=== PATIENT | male | born 1990 | race Caucasian/White ===

== ENCOUNTER 2021-07-10 11:59 | Emergency (ER) | payer BC, SELFPAY ==
--- NOTE | 2021-07-10 12:56 | EDPHYS ---
Physician Documentation [facility] Name: Rosas Clarke Age: 30 yrs Sex: Male : 1990 Arrival Date: 07/10/2021 Time: 12:04 Bed Treatment Private MD: Cliff Estevez HPI: 07/10 12:45 This 30 yrs old Male presents to ER via Ambulatory with complaints of Groin Rash. cp 12:45 The patient presents with rash to right groin. Onset: The symptoms/episode cp began/occurred 2 day(s) ago. Associated signs and symptoms: Pertinent negatives: fever, testicular pain and/or swelling. Severity of symptoms: in the emergency department the symptoms are unchanged, despite home interventions. Historical: - Allergies: 12:14 Abilify; ww - Home Meds: 12:14 None [Active]; ww - PMHx: 12:14 Bipolar disorder; ADD/ADHD; ww - PSHx: 12:14 None; ww - Immunization history:: Flu vaccine is not up to date. - Social history:: Smoking status: Reported history of juuling and/or vaping. ROS: 12:48 Constitutional: Negative for fever. cp 12:48 : Negative for penile discharge, penile pain, testicular pain 12:48 Skin: Positive for rash, of the right groin. 12:48 All other systems are negative. Exam: 12:51 Head/Face: Normocephalic, atraumatic. cp 12:51 Constitutional: The patient appears in no acute distress, alert, awake, non-toxic, well developed, well nourished. 12:51 Skin: small area of erythema with ruptured bullae, no drainage expressed and no cp induration noted to right groin. Vital Signs: 12:12 BP 118 / 76; Pulse 71; Resp 18; Temp 98.4; Pulse Ox 99% on R/A; Weight 81.65 kg; Height ww 6 ft. 0 in. (182.88 cm); Pain 3/10; 12:12 Body Mass Index 24.41 (81.65 kg, 182.88 cm) ww MDM: 12:30 Patient medically screened. cp 12:55 Differential diagnosis: cellulitis, abscess, herpetic lesion. cp 12:55 Data reviewed: vital signs, nurses notes, and as a result, I will discharge patient. cp Counseling: I had a detailed discussion with the patient and/or guardian regarding: the historical points, exam findings, and any diagnostic results supporting the discharge/admit diagnosis, to return to the emergency department if symptoms worsen or persist or if there are any questions or concerns that arise at home. Administered Medications: No medications were administered Disposition: 01:00 Chart complete. cp Disposition Summary: 07/10/21 12:55 Discharge Ordered Location: Home cp Problem: new cp Symptoms: are unchanged cp Condition: Stable cp Diagnosis - Local infection of the skin and subcutaneous tissue, unspecified cp Followup: cp - With: Private Physician - When: 2 - 3 days - Reason: Worsening of condition Discharge Instructions: - Discharge Summary Sheet cp - Cellulitis, Adult cp Forms: - Medication Reconciliation Form cp - Thank You Letter cp - Antibiotic Education cp - Prescription Opioid Use cp Prescriptions: - mupirocin 2 % Topical ointment - apply 1 application by TOPICAL route 3 times per day for 8-10 days; 15 gram; cp Refills: 0, Product Selection Permitted - Doxycycline Hyclate 100 mg Oral Tablet - take 1 tablet by ORAL route every 12 hours; 20 tablet; Refills: 0, Product cp Selection Permitted Addendum: 07/11/2021 18:46 Co-signature as Attending Physician, Cliff Antony MD I agree with the assessment and c tinsley plan of care. Signatures: Cliff Antony MD MD cha Page, Corey, PA PA cp Wood, Whitney, RN RN ww
--- NOTE | 2021-07-10 12:56 | ER ---
Nurse's Notes [facility] Name: Rosas Clarke Age: 30 yrs Sex: Male : 1990 Arrival Date: 07/10/2021 Time: 12:04 Bed Treatment Private MD: Diagnosis: Local infection of the skin and subcutaneous tissue, unspecified Presentation: 07/10 12:12 Chief complaint: Patient states: Right lump in the inguinal region that started 2 days ww and is painful. Coronavirus screen: Vaccine status: Patient reports being unvaccinated. Client denies travel out of the [place] in the last 14 days. Ebola Screen: Patient negative for fever greater than or equal to 101.5 degrees Fahrenheit, and additional compatible Ebola Virus Disease symptoms Patient denies exposure to infectious person. Patient denies travel to an Ebola-affected area in the 21 days before illness onset. Initial Sepsis Screen: Does the patient meet any 2 criteria? No. Patient's initial sepsis screen is negative. Does the patient have a suspected source of infection? No. Patient's initial sepsis screen is negative. Risk Assessment: Do you want to hurt yourself or someone else? Patient reports no desire to harm self or others. Onset of symptoms was July 08, 2021. 12:12 Method Of Arrival: Ambulatory ww 12:12 Acuity: GINGER 4 ww Triage Assessment: 12:14 General: Appears in no apparent distress. well developed, well nourished, Behavior is ww calm, cooperative, appropriate for age. Pain: Complains of pain in right femoral area and right inguinal area. EENT: No deficits noted. No signs and/or symptoms were reported regarding the EENT system. Neuro: No deficits noted. Level of Consciousness is awake, alert, obeys commands, Oriented to person, place, time, situation, Appropriate for age Gait is steady, Speech is normal. Cardiovascular: Capillary refill < 3 seconds. Respiratory: Airway is patent Respiratory effort is even, unlabored, Respiratory pattern is regular, symmetrical. GI: No deficits noted. No signs and/or symptoms were reported involving the gastrointestinal system. Reports normal bowel habits. : No deficits noted. No signs and/or symptoms were reported regarding the genitourinary system. : No deficits noted. Derm: No deficits noted. No signs and/or symptoms reported regarding the dermatologic system. Skin is intact, Skin is pink, warm \T\ dry. Musculoskeletal: No deficits noted. No signs and/or symptoms reported regarding the musculoskeletal system. Historical: - Allergies: 12:14 Abilify; ww - Home Meds: 12:14 None [Active]; ww - PMHx: 12:14 Bipolar disorder; ADD/ADHD; ww - PSHx: 12:14 None; ww - Immunization history:: Flu vaccine is not up to date. - Social history:: Smoking status: Reported history of juuling and/or vaping. Screenin:31 Abuse screen: Denies threats or abuse. Nutritional screening: No deficits noted. ap3 Tuberculosis screening: No symptoms or risk factors identified. Fall Risk None identified. Assessment: 12:30 General: Appears in no apparent distress. comfortable, Behavior is calm, cooperative, ap3 appropriate for age. Pain: Complains of pain in right inguinal area. Neuro: Level of Consciousness is awake, alert, obeys commands, Oriented to person, place, time, situation, Appropriate for age Speech is normal. Respiratory: Airway is patent Respiratory effort is even, unlabored. Derm: Reports swelling present in the lower right inguinal area. Vital Signs: 12:12 BP 118 / 76; Pulse 71; Resp 18; Temp 98.4; Pulse Ox 99% on R/A; Weight 81.65 kg; Height ww 6 ft. 0 in. (182.88 cm); Pain 3/10; 12:12 Body Mass Index 24.41 (81.65 kg, 182.88 cm) ED Course: 12:04 Patient arrived in ED. am2 12:14 Triage completed. ww 12:14 Arm band placed on right wrist. ww 12:24 Rhianna Calvo, EMMANUEL is Primary Nurse. ap3 12:29 Cliff Boswell PA is PHCP. cp 12:29 Cliff Antony MD is Attending Physician. cp 12:31 Patient has correct armband on for positive identification. Placed in gown. Bed in low ap3 position. Call light in reach. Side rails up X 1. Pulse ox on. NIBP on. Door closed. Noise minimized. 13:02 No provider procedures requiring assistance completed. Patient did not have IV access ap3 during this emergency room visit. Administered Medications: No medications were administered Outcome: 12:55 Discharge ordered by . cp 13:02 Discharged to home ambulatory. ap3 13:02 Condition: good 13:02 Discharge instructions given to patient, Instructed on discharge instructions, follow up and referral plans. medication usage, wound care, Demonstrated understanding of instructions, follow-up care, medications, Prescriptions given X 2. 13:03 Patient left the ED. ap3 Signatures: Cliff Boswell PA PA cp Rhianna Leary am2 Rhianna Calvo RN RN ap3 Verenice Spivey RN RN ww
[2021-07-10 13:12] VITALS: BP 118/76; TEMP 98.4; O2SAT 99
== END 2021-07-10 13:03 | disposition home or self-care (01) ==
LOC: ER 11:59
DX: L08.9 Local infection of the skin and subcutaneous tissue, unspecified (principal); Z88.8 Allergy status to other drugs, medicaments and biological substances
CPT/HCPCS: 99283

== ENCOUNTER 2022-01-09 12:40 | Emergency (ER) | payer SELFPAY ==
[2022-01-09] MEDS ORDERED: MORPHINE 4 MG/ML SYR ONE (13:27)
[2022-01-09] MEDS ORDERED: FAMOTIDINE 20 MG/2 ML VIAL IV ONE (13:27)
[2022-01-09] MEDS ORDERED: ONDANSETRON 4 MG/2 ML VIAL ONE (13:27)
[2022-01-09] MEDS ORDERED: NA CHLORIDE 0.9% 1,000 ML ONE (13:27)
[2022-01-09 13:35] LABS: Urine Blood Negative (Negative); Urine Glucose Negative (Negative); Urine Protein Negative (Negative); Urine Specific Gravity >=1.030 (1.005-1.030); Urine pH 5.5 (5.0-7.0)
[2022-01-09 13:39] LABS: Absolute Lymphocytes (CBC) 1.3 K/uL (0.7-4.9); Hematocrit 46.6 % (39.6-49.0); Lymphocytes % 23.7 % (15.3-44.8); MPV 8.6 fL (7.6-11.3); RBC Red Blood Cell Count 4.97 M/uL (4.33-5.43)
[2022-01-09 13:47] LABS: Urine Bacteria NONE SEEN /HPF (NONE SEEN); Urine RBC NONE SEEN /HPF (NONE SEEN)
[2022-01-09 13:48] LABS: Urine Mucus SLIGHT /HPF (NONE SEEN)
[2022-01-09 13:56] LABS: Bilirubin Total 1.3 mg/dL (0.2-1.0); Potassium 3.6 mmol/L (3.5-5.1); Protein, Total 7.5 g/dL (6.4-8.2)
--- NOTE | 2022-01-09 14:32 | RAD REPORT ---
EXAM DESCRIPTION: CTAbdomen Pelvis W Contrast - 01/09/2022 2:14 pm CLINICAL HISTORY: Epigatric pain COMPARISON: No comparisons TECHNIQUE: CT of the abdomen and pelvis was performed. All CT scans are performed using dose optimization technique as appropriate and may include automated exposure control or mA/KV adjustment according to patient size. FINDINGS: Lower chest: Mild circumferential thickening of the distal esophagus which may reflect mil d esophagitis. Liver: No acute abnormality or suspicious lesions. Biliary: No biliary ductal dilatation. Stomach: No significant focal abnormality. Duodenum: No significant focal abnormality. Pancreas: No significant abnormality. Spleen: No significant abnormality. Adrenal: No suspicious lesions. Kidney/ureter: No hydronephrosis. No renal calculi. Retroperitoneum: No retroperitoneal adenopathy. Vascular: No aneurysm. Bowel: No significant focal abnormality. Normal appendix. Peritoneum: No ascites or free air. Bladder: Grossly unremarkable. Reproductive: No adnexal masses. Bones: No acute fracture. Schmorl's node in the superior endplate of L5. Other: n/a IMPRESSION: No acute intra-abdominal or pelvic finding. Circumferentially thickened distal esophagus which may reflect esophagitis. Normal appendix
--- NOTE | 2022-01-09 15:06 | ER ---
Nurse's Notes [facility] Name: Rosas Clarke Age: 31 yrs Sex: Male : 1990 Arrival Date: 01/09/2022 Time: 12:41 Bed 26 Private MD: Diagnosis: Esophagitis, unspecified Presentation: 01/09 12:52 Chief complaint: Patient states: NV since last night, stated Epigastric pain. 1 Coronavirus screen: Vaccine status: Patient reports being unvaccinated. Client denies travel out of the [place] in the last 14 days. Ebola Screen: Patient denies exposure to infectious person. Patient denies travel to an Ebola-affected area in the 21 days before illness onset. Initial Sepsis Screen: Does the patient meet any 2 criteria? No. Patient's initial sepsis screen is negative. Does the patient have a suspected source of infection? No. Patient's initial sepsis screen is negative. Risk Assessment: Do you want to hurt yourself or someone else? Patient reports no desire to harm self or others. Onset of symptoms was January 08, 2022. 12:52 Method Of Arrival: Ambulatory [facility] 12:52 Acuity: GINGER 3 1 Triage Assessment: 12:53 General: Appears comfortable, Behavior is calm, cooperative. Pain: Complains of pain in 1 epigastric area Pain currently is 3 out of 10 on a pain scale. GI: Reports nausea, vomiting. Historical: - Allergies: 12:53 Abilify; vg1 - Home Meds: 12:53 None [Active]; vg1 - PMHx: 12:53 ADD/ADHD; Bipolar disorder; vg1 - PSHx: 12:53 None; vg1 - Immunization history:: Client reports having NOT received the Covid vaccine. - Social history:: Smoking status: Reported history of juuling and/or vaping. Screenin:13 Abuse screen: Denies threats or abuse. Nutritional screening: No deficits noted. [facility] Tuberculosis screening: No symptoms or risk factors identified. Fall Risk None identified. Assessment: 13:13 Reassessment: Patient appears in no apparent distress at this time. No changes from [facility] previously documented assessment. General: Appears in no apparent distress. Behavior is calm, cooperative, appropriate for age. Cardiovascular: No deficits noted. Respiratory: No deficits noted. GI: Abdomen is flat, non-distended. Vital Signs: 12:52 BP 122 / 75; Pulse 77; Resp 16; Temp 98.7(TE); Pulse Ox 100% ; Weight 90.72 kg; Height [facility] 6 ft. 0 in. (182.88 cm); Pain 3/10; 13:38 BP 117 / 70; Pulse 65; Resp 18; Pulse Ox 98% on R/A; bh1 14:06 BP 115 / 69; Pulse 88; Resp 20; Pulse Ox 98% on R/A; bh1 14:30 BP 117 / 75; Pulse 54; Resp 20; Temp 98.3(O); Pulse Ox 98% on R/A; bh1 15:12 BP 124 / 59; Pulse 60; Resp 20; Pulse Ox 100% on R/A; bh1 15:12 BP 186 / 80; Pulse 65; Resp 20; Pulse Ox 99% on R/A; bh1 15:33 BP 122 / 76; Pulse 56; Resp 20; Temp 98.3(O); Pulse Ox 99% on R/A; bh1 12:52 Body Mass Index 27.12 (90.72 kg, 182.88 cm) [facility] ED Course: 12:41 Patient arrived in ED. rg4 12:53 Triage completed. 1 12:53 Arm band placed on. 1 12:55 Kriss[facility] Giron [facility] jh7 12:55 Cliff Antony MD is Attending Physician. [facility] 12:57 Shira Back, EMMANUEL is Primary Nurse. [facility] 13:13 No apparent distress. 1 13:13 Patient has correct armband on for positive identification. Bed in low position. Call [facility] light in reach. Pulse ox on. NIBP on. 13:13 No provider procedures requiring assistance completed. 1 13:35 CBC with Diff Sent. 1 13:35 CMP Sent. 1 13:35 Lipase Sent. 1 13:35 Urine Microscopic Only Sent. 1 13:37 Inserted saline lock: 20 gauge in right antecubital area, using aseptic technique. [facility] Blood collected. 13:38 No apparent distress. Awaiting lab results, Awaiting CT Scan. 1 14:[address] [facility] 14:15 CT Abd/Pelvis - IV Contrast Only In Process Unspecified. EDOH 14:31 Awaiting lab results, Awaiting radiology results. [facility] 15:11 No apparent distress. Awaiting: iv fluids. 1 15:12 No apparent distress. Awaiting: iv fluids. [facility] 15:32 IV discontinued, intact, bleeding controlled. [facility] Administered Medications: 13:25 Drug: NS 0.9% 1000 ml Route: IV; Rate: 1 bolus; Site: right antecubital; [facility] 15:33 Follow up: IV Status: Completed infusion; IV Intake: 1000ml [facility] 13:25 Drug: Pepcid (famotidine) 20 mg Route: IVP; Site: right antecubital; [facility] 13:36 Follow up: Response: No adverse reaction [facility] 13:25 Drug: Zofran (Ondansetron) 4 mg Route: IVP; Site: right antecubital; [facility] 13:36 Follow up: Response: No adverse reaction [facility] 13:25 Drug: morphine 4 mg Route: IVP; Infused Over: 4 mins; Site: right antecubital; [facility] 13:36 Follow up: Response: No adverse reaction [facility] 15:11 Drug: GI Cocktail without - (Maalox Suspension 30 ml, Lidocaine Liquid 2 % 15 bh1 ml) Route: PO; 15:11 Follow up: Response: No adverse reaction [facility] Medication: 13:13 VIS not applicable for this client. [facility] Intake: 15:33 IV: 1000ml; Total: 1000ml. [facility] Outcome: 15:05 Discharge ordered by MD. blevins 15:32 Discharged to home ambulatory. [facility] 15:32 Condition: good 15:32 Discharge instructions given to patient, family, Instructed on discharge instructions, follow up and referral plans. medication usage, Demonstrated understanding of instructions, follow-up care, medications, Prescriptions given X 2. 15:33 Patient left the ED. [facility] Signatures: Dispatcher [employer] EDMirta Gooden Victoria, RN RN 1 Krissy Giron, ADVERTISING ASSISTANT MANAGER ADVERTISING ASSISTANT MANAGER Shira Mccarty RN RN [facility]
--- NOTE | 2022-01-09 15:06 | EDPHYS ---
Physician Documentation [facility] Name: Rosas Clarke Age: 31 yrs Sex: Male : 1990 Arrival Date: 01/09/2022 Time: 12:41 Bed 26 Private MD: ED Physician Cliff Antony HPI: 01/09 12:55 This 31 yrs old Male presents to ER via Ambulatory with complaints of Vomiting. jh7 12:55 The patient presents to the emergency department with nausea, vomiting, abdominal pain, jh7 of the epigastric area. Onset: The symptoms/episode began/occurred last night. Patient presents for nausea and vomiting and epigastric pain since last night. States he is vomited at least 4 times. Denies fever, cough, and diarrhea. States that his last bowel movement was last night.. Historical: - Allergies: 12:53 Abilify; vg1 - Home Meds: 12:53 None [Active]; vg1 - PMHx: 12:53 ADD/ADHD; Bipolar disorder; vg1 - PSHx: 12:53 None; vg1 - Immunization history:: Client reports having NOT received the Covid vaccine. - Social history:: Smoking status: Reported history of juuling and/or vaping. ROS: 12:55 Constitutional: Negative for fever, chills, and weight loss. jh7 12:55 ENT: Negative for injury, pain, and discharge, Neck: Negative for injury, pain, and swelling, Cardiovascular: Negative for chest pain, palpitations, and edema, Respiratory: Negative for shortness of breath, cough, wheezing, and pleuritic chest pain, Back: Negative for injury and pain, Skin: Negative for injury, rash, and discoloration, Neuro: Negative for headache, weakness, numbness, tingling, and seizure. 12:55 Abdomen/GI: Positive for abdominal pain, nausea and vomiting, Negative for diarrhea, constipation, black/tarry stool. 12:55 All other systems are negative. Exam: 12:55 Constitutional: This is a well developed, well nourished patient who is awake, alert, jh7 and in no acute distress. ENT: Nares patent. No nasal discharge, no septal abnormalities noted. Tympanic membranes are normal and external auditory canals are clear. Oropharynx with no redness, swelling, or masses, exudates, or evidence of obstruction, uvula midline. Mucous membranes moist. Neck: Trachea midline, no thyromegaly or masses palpated, and no cervical lymphadenopathy. Supple, full range of motion without nuchal rigidity, or vertebral point tenderness. No Meningismus. Cardiovascular: Regular rate and rhythm with a normal S1 and S2. No gallops, murmurs, or rubs. Normal PMI, no JVD. No pulse deficits. Respiratory: Lungs have equal breath sounds bilaterally, clear to auscultation and percussion. No rales, rhonchi or wheezes noted. No increased work of breathing, no retractions or nasal flaring. Back: No spinal tenderness. No costovertebral tenderness. Full range of motion. Skin: Warm, dry with normal turgor. Normal color with no rashes, no lesions, and no evidence of cellulitis. MS/ Extremity: Pulses equal, no cyanosis. Neurovascular intact. Full, normal range of motion. Neuro: Awake and alert, GCS 15, oriented to person, place, time, and situation. Motor strength 5/5 in all extremities. Sensory grossly intact. Normal gait. 12:55 Abdomen/GI: Inspection: abdomen appears normal, Bowel sounds: normal, Palpation: moderate abdominal tenderness, in the epigastric area. Vital Signs: 12:52 BP 122 / 75; Pulse 77; Resp 16; Temp 98.7(TE); Pulse Ox 100% ; Weight 90.72 kg; Height vg1 6 ft. 0 in. (182.88 cm); Pain 3/10; 13:38 BP 117 / 70; Pulse 65; Resp 18; Pulse Ox 98% on R/A; bh1 14:06 BP 115 / 69; Pulse 88; Resp 20; Pulse Ox 98% on R/A; bh1 14:30 BP 117 / 75; Pulse 54; Resp 20; Temp 98.3(O); Pulse Ox 98% on R/A; bh1 15:12 BP 124 / 59; Pulse 60; Resp 20; Pulse Ox 100% on R/A; bh1 15:12 BP 186 / 80; Pulse 65; Resp 20; Pulse Ox 99% on R/A; bh1 15:33 BP 122 / 76; Pulse 56; Resp 20; Temp 98.3(O); Pulse Ox 99% on R/A; bh1 12:52 Body Mass Index 27.12 (90.72 kg, 182.88 cm) vg1 MDM: 12:56 Patient medically screened. [facility] 14:45 Differential diagnosis: gastritis, cholecystitis, pancreatitis, viral gastroenteritis. [facility] Data reviewed: vital signs, nurses notes, lab test result(s), radiologic studies, CT scan. Data interpreted: Pulse oximetry: is 98 %. Interpretation: normal. Counseling: I had a detailed discussion with the patient and/or guardian regarding: the historical points, exam findings, and any diagnostic results supporting the discharge/admit diagnosis, lab results, radiology results, to return to the emergency department if symptoms worsen or persist or if there are any questions or concerns that arise at home. 14:45 Response to treatment: the patient's symptoms have mildly improved after treatment. ED 7 course: The patient remained stable throughout his ER visit. His lab and CT scan results were discussed. Informed him that he had esophagitis which likely occurred from vomiting. Informed him that he would be prescribed medication for nausea and an acids. If his symptoms persist, or worsen, he should return to the ER for further eval. The patient understood the plan of care.. 01/09 13:00 Order name: CBC with Diff; Complete Time: 14:00 [facility] 01/09 13:00 Order name: CMP; Complete Time: 14:00 [facility] 01/09 13:00 Order name: Lipase; Complete Time: 14:00 [facility] 01/09 13:00 Order name: Urine Microscopic Only; Complete Time: 14:00 [facility] 01/09 13:00 Order name: CT Abd/Pelvis - IV Contrast Only; Complete Time: 14:41 [facility] 01/09 13:35 Order name: Urine Dipstick-Ancillary; Complete Time: 14:00 [facility] 01/09 13:00 Order name: IV Saline Lock; Complete Time: 13:35 [facility] 01/09 13:00 Order name: Labs collected and sent; Complete Time: 13:35 [facility] 01/09 13:00 Order name: Urine Dipstick-Ancillary (obtain specimen); Complete Time: 13:35 [facility] Administered Medications: 13:25 Drug: NS 0.9% 1000 ml Route: IV; Rate: 1 bolus; Site: right antecubital; [facility] 15:33 Follow up: IV Status: Completed infusion; IV Intake: 1000ml [facility] 13:25 Drug: Pepcid (famotidine) 20 mg Route: IVP; Site: right antecubital; 1 13:36 Follow up: Response: No adverse reaction [facility] 13:25 Drug: Zofran (Ondansetron) 4 mg Route: IVP; Site: right antecubital; 1 13:36 Follow up: Response: No adverse reaction [facility] 13:25 Drug: morphine 4 mg Route: IVP; Infused Over: 4 mins; Site: right antecubital; [facility] 13:36 Follow up: Response: No adverse reaction [facility] 15:11 Drug: GI Cocktail without - (Maalox Suspension 30 ml, Lidocaine Liquid 2 % 15 bh1 ml) Route: PO; 15:11 Follow up: Response: No adverse reaction [facility] Disposition Summary: 01/09/22 15:05 Discharge Ordered Location: Home [facility] Problem: new [facility] Symptoms: have improved [facility] Condition: Stable [facility] Diagnosis - Esophagitis, unspecified [facility] Followup: [facility] - With: Private Physician - When: 2 - 3 days - Reason: Recheck today's complaints Discharge Instructions: - Discharge Summary Sheet [facility] - Esophagitis [facility] Forms: - Medication Reconciliation Form [facility] - Thank You Letter [facility] - Work release form [facility] Prescriptions: - Pepcid 20 mg Oral Tablet - take 1 tablet by ORAL route every 12 hours for 10 days; 20 tablet; Refills: 0, [facility] Product Selection Permitted - Zofran 4 mg Oral Tablet - take 1 tablet by ORAL route every 12 hours As needed; 20 tablet; Refills: 0, [facility] Product Selection Permitted Signatures: Dispatcher [employer] Gabriela Dudley, RN RN 1 Krissy Giron, WAREHOUSE SHIFT SUPERVISOR WAREHOUSE SHIFT SUPERVISOR [facility] Shira Back, RN RN bh1
[2022-01-09] MEDS ORDERED: MAGNES/ALUMIN/SIMET 30ML UCUP ONE (15:15)
[2022-01-09] MEDS ORDERED: LIDOCAINE VISCOUS 2% SOLN 15 ML UDC ONE (15:15)
[2022-01-09 16:24] VITALS: TEMP 98.3
[2022-01-09 16:26] VITALS: O2SAT 99
[2022-01-09 16:27] VITALS: BP 122/76
== END 2022-01-09 15:33 | disposition home or self-care (01) ==
LOC: ER 12:40
DX: K20.90 Esophagitis, unspecified without bleeding (principal); Z88.8 Allergy status to other drugs, medicaments and biological substances
CPT/HCPCS: 36415; 74177; 80053; 81003; 81015; 83690; 85025; J2405; J3490; J7030; Q9967

== ENCOUNTER 2022-08-11 14:00 | Emergency (ER) | payer SELFPAY ==
[2022-08-11 15:13] LABS: Absolute Lymphocytes (CBC) 0.5 K/uL (0.7-4.9); Hematocrit 51.2 % (39.6-49.0); Lymphocytes % 4.9 % (15.3-44.8); MCV 91.4 fL (80-100)
[2022-08-11 15:30] LABS: Albumin 4.7 g/dL (3.4-5.0); Bilirubin Total 2.8 mg/dL (0.2-1.0); Protein, Total 8.3 g/dL (6.4-8.2)
--- NOTE | 2022-08-11 16:21 | RAD REPORT ---
EXAM DESCRIPTION: US - Abdomen Exam Limited - 08/11/2022 3:54 pm CLINICAL HISTORY: ABD PAIN COMPARISON: Abdomen Pelvis W Contrast dated 01/09/2022 FINDINGS: The gallbladder demonstrates no gallstones. No pericholecystic fluid or gallbladder wall t hickening. The common bile duct is normal measuring 3 mm. The liver demonstrates no findings of intrahepatic biliary dilatation. IMPRESSION: Unremarkable examination. Negative for cholelithiasis or acute cholecystitis.
--- NOTE | 2022-08-11 16:21 | RAD REPORT ---
EXAM DESCRIPTION: CTAbdomen Pelvis W Contrast - 08/11/2022 3:56 pm CLINICAL HISTORY: vomiting, diarrhea, abdominal pain COMPARISON: Abdomen Pelvis W Contrast dated 01/09/2022bdomen Pelvis W Contrast dated 01/09/2022; Ab domen Exam Limited dated 08/11/2022 TECHNIQUE: CT of the abdomen and pelvis was performed with IV contrast. All CT scans are performed using dose optimization technique as appropriate and may include automated exposure control or mA/KV adjustment according to patient size. FINDINGS: Lower chest: No acute abnormality. Liver: No acute abnormality or suspicious lesions. Biliary: No biliary ductal dilatation. Stomach: No significant focal abnormality. Duodenum: No significant focal abnormality. Pancreas: No significant abnormality. Spleen: No significant abnormality. Adrenal: No suspicious lesions. Kidney/ureter: No hydronephrosis. No renal calculi. Retroperitoneum: No retroperitoneal adenopathy. Vascular: No aneurysm. Bowel: No significant focal abnormality. Normal appendix. Peritoneum: No ascites or free air. Bladder: Grossly unremarkable. Reproductive: No adnexal masses. Bones: No acute fracture. Schmorl's node at the superior endplate of L5 . Other: n/a IMPRESSION: No acute intra-abdominal or pelvic finding. Normal appendix.
[2022-08-11] MEDS ORDERED: ONDANSETRON 4 MG/2 ML VIAL ONE (17:01)
[2022-08-11] MEDS ORDERED: NA CHLORIDE 0.9% 1,000 ML ONE (17:01)
--- NOTE | 2022-08-11 18:23 | EDPHYS ---
Physician Documentation [facility] Name: Rosas Clarke Age: 31 yrs Sex: Male : 1990 Arrival Date: 08/11/2022 Time: 14:01 Bed 10 Private MD: ED Physician Alen Louis HPI: 08/11 18:20 This 31 yrs old Male presents to ER via Ambulatory with complaints of Abdominal Pain, jmm Vomiting/Diarrhea. 18:20 The patient presents with abdominal pain. Onset: The symptoms/episode began/occurred jmm gradually, this morning. Is a 31-year-old male with history of bipolar, ADHD that presents emerged department with complaints of abdominal pain vomiting and diarrhea beginning acutely this morning. Denies any infectious exposure. Denies recent antibiotic use.. Historical: - Allergies: 15:01 Abilify; vg1 - Home Meds: 15:01 None [Active]; vg1 - PMHx: 15:01 Bipolar disorder; ADD/ADHD; vg1 - PSHx: 15:01 None; vg1 - Immunization history:: Client reports having NOT received the Covid vaccine. - Social history:: Smoking status: Reported history of juuling and/or vaping. ROS: 18:20 Constitutional: Positive for body aches. jmm 18:20 Abdomen/GI: Positive for abdominal pain, nausea and vomiting, diarrhea. 18:20 All other systems are negative. Exam: 18:20 Constitutional: This is a well developed, well nourished patient who is awake, alert, jmm and in no acute distress. Head/Face: atraumatic. Eyes: EOMI, no conjunctival erythema appreciated ENT: Moist Mucus Membranes Neck: Trachea midline, Supple Chest/axilla: Normal chest wall appearance and motion. Cardiovascular: Regular rate and rhythm. No edema appreciated Respiratory: Normal respirations, no respiratory distress appreciated 18:20 Back: Normal ROM Skin: General appearance color normal MS/ Extremity: Moves all extremities, no obvious deformities appreciated, no edema noted to the lower extremities Neuro: Awake and alert Psych: Behavior is normal, Mood is normal, Patient is cooperative and pleasant 18:20 Abdomen/GI: Inspection: abdomen appears normal, Bowel sounds: normal, Palpation: soft, mild abdominal tenderness, in all quadrants. Vital Signs: 14:58 BP 113 / 80; Pulse 75; Resp 18; Temp 97.9(TE); Pulse Ox 97% on R/A; Weight 81.65 kg; vg1 Height 6 ft. 0 in. (182.88 cm); Pain 8/10; 14:58 Body Mass Index 24.41 (81.65 kg, 182.88 cm) vg1 MDM: 14:43 Patient medically screened. [facility] 18:21 Data reviewed: vital signs, nurses notes. I considered the following discharge [facility] prescriptions or medication management in the emergency department Medications were administered in the Emergency Department. See MAR. Counseling: I had a detailed discussion with the patient and/or guardian regarding: the historical points, exam findings, and any diagnostic results supporting the discharge/admit diagnosis, lab results, radiology results, the need for outpatient follow up, to return to the emergency department if symptoms worsen or persist or if there are any questions or concerns that arise at home. Response to treatment: the patient's symptoms have markedly improved after treatment, and as a result, I will discharge patient. 08/11 14:43 Order name: CBC with Diff; Complete Time: 15:20 [facility] 08/11 14:43 Order name: CMP; Complete Time: 15:35 [facility] 08/11 14:43 Order name: Lipase; Complete Time: 15:35 [facility] 08/11 14:43 Order name: CT Abd/Pelvis - IV Contrast Only; Complete Time: 16:23 [facility] 08/11 15:35 Order name: US Abdomen Limited; Complete Time: 16:23 [facility] 08/11 14:43 Order name: IV Saline Lock; Complete Time: 15:04 [facility] 08/11 14:43 Order name: Labs collected and sent; Complete Time: 15:04 [facility] Administered Medications: 17:07 Drug: NS 0.9% 1000 ml Route: IV; Rate: 1 bolus; Site: right antecubital; aa5 18:10 Follow up: IV Status: Completed infusion; IV Intake: 1000ml aa5 17:07 Drug: Zofran (Ondansetron) 4 mg Route: IVP; Site: right antecubital; aa5 17:15 Follow up: Response: No adverse reaction aa5 Disposition: 08/12 13:32 Co-signature as Attending Physician, Aeln Louis MD. rn Disposition Summary: 08/11/22 18:22 Discharge Ordered Location: Home jmm Condition: Stable jmm Diagnosis - Vomiting jmm - Diarrhea, unspecified jmm Followup: jmm - With: Private Physician - When: 2 - 3 days - Reason: Recheck today's complaints, Continuance of care, Re-evaluation by your physician Discharge Instructions: - Discharge Summary Sheet jmm - Diarrhea, Adult jmm - Vomiting, Adult jmm Forms: - Medication Reconciliation Form [facility] - Thank You Letter [facility] - Antibiotic Education [facility] - Prescription Opioid Use [facility] - Work release form aa5 Prescriptions: - dicyclomine 20 mg Oral Tablet - take 1 tablet by ORAL route 3 times per day As needed; 20 tablet; Refills: 0, [facility] Product Selection Permitted - ondansetron 4 mg Oral tablet,disintegrating - take 1 tablet by ORAL route every 4 hours As needed; 20 tablet; Refills: 0, [facility] Product Selection Permitted Signatures: Dispatcher [employer] Adelso Fuentes PA PA jmm Nieto, Roman, MD MD rn Calderon, Audri, RN RN aa5 Gabriela Mercado RN RN vg1
--- NOTE | 2022-08-11 18:23 | ER ---
Nurse's Notes [facility] Name: Rosas Clarke Age: 31 yrs Sex: Male : 1990 Arrival Date: 08/11/2022 Time: 14:01 Bed 10 Private MD: Diagnosis: Vomiting;Diarrhea, unspecified Presentation: 08/11 14:58 Chief complaint: Patient states: NVD that began this morning with ABD pain; also stated vg1 intolerance to fluids. Coronavirus screen: Vaccine status: Patient reports being unvaccinated. Client denies travel out of the [place] in the last 14 days. Ebola Screen: Patient negative for fever greater than or equal to 101.5 degrees Fahrenheit, and additional compatible Ebola Virus Disease symptoms Patient denies exposure to infectious person. Initial Sepsis Screen: Does the patient meet any 2 criteria? No. Patient's initial sepsis screen is negative. Does the patient have a suspected source of infection? No. Patient's initial sepsis screen is negative. Risk Assessment: Do you want to hurt yourself or someone else? Patient reports no desire to harm self or others. Onset of symptoms was August 11, 2022. 14:58 Method Of Arrival: Ambulatory vg1 14:58 Acuity: GINGER 3 vg1 Triage Assessment: 15:01 General: Appears uncomfortable, Behavior is calm, cooperative. Pain: Complains of pain vg1 in umbilical area Pain currently is 8 out of 10 on a pain scale. Pain began this morning. Neuro: Level of Consciousness is awake, alert, obeys commands, Oriented to person, place, time, situation. Respiratory: Airway is patent. GI: Abdomen is flat, Reports diarrhea, nausea, vomiting. Derm: Skin is pink, warm \T\ dry. Historical: - Allergies: 15:01 Abilify; vg1 - Home Meds: 15:01 None [Active]; vg1 - PMHx: 15:01 Bipolar disorder; ADD/ADHD; vg1 - PSHx: 15:01 None; vg1 - Immunization history:: Client reports having NOT received the Covid vaccine. - Social history:: Smoking status: Reported history of juuling and/or vaping. Screenin:03 [facility] ED Fall Risk Assessment (Adult) History of falling in the last 3 months, vg1 including since admission No falls in past 3 months (0 pts) Confusion or Disorientation No (0 pts) Intoxicated or Sedated No (0 pts) Impaired Gait No (0 pts) Mobility Assist Device Used No (0 pt) Altered Elimination No (0 pt) Score/Fall Risk Level 0 - 2 = Low Risk Oriented to surroundings, Maintained a safe environment, Educated pt \T\ family on fall prevention, incl call for assistance when getting out of bed, Assessed \T\ reinforced patient's understanding of fall precautions. Abuse screen: Denies threats or abuse. Nutritional screening: No deficits noted. Tuberculosis screening: No symptoms or risk factors identified. Assessment: 17:05 Reassessment: Patient is alert, oriented x 3, equal unlabored respirations, skin aa5 warm/dry/pink. 18:10 Reassessment: Patient is alert, oriented x 3, equal unlabored respirations, skin aa5 warm/dry/pink. 18:30 Reassessment: Patient is alert, oriented x 3, equal unlabored respirations, skin aa5 warm/dry/pink. Vital Signs: 14:58 BP 113 / 80; Pulse 75; Resp 18; Temp 97.9(TE); Pulse Ox 97% on R/A; Weight 81.65 kg; vg1 Height 6 ft. 0 in. (182.88 cm); Pain 8/10; 14:58 Body Mass Index 24.41 (81.65 kg, 182.88 cm) vg1 ED Course: 14:01 Patient arrived in ED. am2 14:02 Adelso Man PA is PHCP. [facility] 14:02 Alen Louis MD is Attending Physician. [facility] 15:01 Triage completed. vg1 15:01 Arm band placed on. vg1 15:03 Patient has correct armband on for positive identification. vg1 15:03 Initial lab(s) drawn, by ED staff, sent to lab. Inserted saline lock: 20 gauge in right vg1 antecubital area, using aseptic technique. ,using aseptic technique. completed by [facility] Blood collected. 15:56 US Abdomen Limited In Process Unspecified. EDMS 15:58 CT Abd/Pelvis - IV Contrast Only In Process Unspecified. EDMS 18:30 No provider procedures requiring assistance completed. IV discontinued, intact, aa5 bleeding controlled, No redness/swelling at site. Pressure dressing applied. Administered Medications: 17:07 Drug: NS 0.9% 1000 ml Route: IV; Rate: 1 bolus; Site: right antecubital; aa5 18:10 Follow up: IV Status: Completed infusion; IV Intake: 1000ml aa5 17:07 Drug: Zofran (Ondansetron) 4 mg Route: IVP; Site: right antecubital; aa5 17:15 Follow up: Response: No adverse reaction aa5 Medication: 15:04 VIS not applicable for this client. vg1 Intake: 18:10 IV: 1000ml; Total: 1000ml. aa5 Outcome: 18:22 Discharge ordered by . rebecca 18:30 Discharged to home ambulatory. aa5 18:30 Condition: improved 18:30 Discharge instructions given to patient, Instructed on discharge instructions, follow up and referral plans. medication usage, Demonstrated understanding of instructions, follow-up care, medications, Prescriptions given X 2. 18:32 Patient left the ED. aa5 Signatures: Dispatcher [employer] EDMS Adelso Man PA PA jmm Calderon, Audri, RN RN aa5 Rhianna Leary Victoria, RN RN vg1
== END 2022-08-11 18:32 | disposition home or self-care (01) ==
LOC: ER 14:00
DX: R11.10 Vomiting, unspecified (principal); R19.7 Diarrhea, unspecified
CPT/HCPCS: 36415; 74177; 76705; 80053; 83690; 85025; 96361; 96374; 99284; J2405; J7030; Q9967

== ENCOUNTER 2023-02-27 13:08 | Emergency (ER) | payer SELFPAY ==
--- NOTE | 2023-02-27 13:53 | EDPHYS ---
Physician Documentation [facility] Name: Rosas Clarke Age: 32 yrs Sex: Male : 1990 Arrival Date: 02/27/2023 Time: 13:08 Bed IW3 Private MD: ED Physician Alondra Ford HPI: 02/27 14:42 This 32 yrs old Male presents to ER via Ambulatory with complaints of Abdominal Pain. snw 14:42 Onset: The symptoms/episode began/occurred 6 month(s) ago, and became persistent. snw Historical: - Allergies: 13:45 Abilify; cm10 - PMHx: 13:45 Bipolar disorder; ADD/ADHD; cm10 - Immunization history:: Adult Immunizations unknown. - Social history:: Smoking status: Reported history of juuling and/or vaping. ROS: 13:58 Constitutional: Negative for fever, chills, and weight loss, Eyes: Negative for injury, snw pain, redness, and discharge, ENT: Negative for injury, pain, and discharge, Neck: Negative for injury, pain, and swelling, Cardiovascular: Negative for chest pain, palpitations, and edema, Respiratory: Negative for shortness of breath, cough, wheezing, and pleuritic chest pain, Back: Negative for injury and pain, : Negative for injury, bleeding, discharge, and swelling, MS/Extremity: Negative for injury and deformity, Skin: Negative for injury, rash, and discoloration, Neuro: Negative for headache, weakness, numbness, tingling, and seizure, Psych: Negative for depression, anxiety, suicide ideation, homicidal ideation, and hallucinations. 13:58 Abdomen/GI: Positive for abdominal pain, of the umbilical area and suprapubic area. Exam: 13:57 Constitutional: This is a well developed, well nourished patient who is awake, alert, snw and in no acute distress. Head/Face: Normocephalic, atraumatic. Eyes: Pupils equal round and reactive to light, extra-ocular motions intact. Lids and lashes normal. Conjunctiva and sclera are non-icteric and not injected. Cornea within normal limits. Periorbital areas with no swelling, redness, or edema. ENT: Nares patent. No nasal discharge, no septal abnormalities noted. Tympanic membranes are normal and external auditory canals are clear. Oropharynx with no redness, swelling, or masses, exudates, or evidence of obstruction, uvula midline. Mucous membranes moist. Neck: Trachea midline, no thyromegaly or masses palpated, and no cervical lymphadenopathy. Supple, full range of motion without nuchal rigidity, or vertebral point tenderness. No Meningismus. Chest/axilla: Normal chest wall appearance and motion. Nontender with no deformity. No lesions are appreciated. Cardiovascular: Regular rate and rhythm with a normal S1 and S2. No gallops, murmurs, or rubs. Normal PMI, no JVD. No pulse deficits. Respiratory: Lungs have equal breath sounds bilaterally, clear to auscultation and percussion. No rales, rhonchi or wheezes noted. No increased work of breathing, no retractions or nasal flaring. Abdomen/GI: Soft, non-tender, with normal bowel sounds. No distension or tympany. No guarding or rebound. No evidence of tenderness throughout. Back: No spinal tenderness. No costovertebral tenderness. Full range of motion. Skin: Warm, dry with normal turgor. Normal color with no rashes, no lesions, and no evidence of cellulitis. MS/ Extremity: Pulses equal, no cyanosis. Neurovascular intact. Full, normal range of motion. Neuro: Awake and alert, GCS 15, oriented to person, place, time, and situation. Cranial nerves II-XII grossly intact. Motor strength 5/5 in all extremities. Sensory grossly intact. Cerebellar exam normal. Normal gait. Psych: Awake, alert, with orientation to person, place and time. Behavior, mood, and affect are anxious Vital Signs: 13:43 BP 117 / 74; Pulse 64; Resp 18 S; Temp 98.1; Pulse Ox 98% on R/A; Weight 81.65 kg; cm10 Height 6 ft. 0 in. ; Pain 5/10; 13:43 Body Mass Index 24.41 (81.65 kg, 182.88 cm) cm10 13:43 Pain Scale: Adult cm10 MDM: 13:49 Patient medically screened. snw 14:42 Differential diagnosis: gastritis, gastroesophageal reflux disease, cyclical vomiting. snw Data reviewed: vital signs, nurses notes. Counseling: I had a detailed discussion with the patient and/or guardian regarding: the historical points, exam findings, and any diagnostic results supporting the discharge/admit diagnosis, the need for outpatient follow up, for definitive care, to return to the emergency department if symptoms worsen or persist or if there are any questions or concerns that arise at home. Special discussion: Based on the patient's Hx, exam, and Dx evaluation, there is no indication for emergent surgery or inpatient Tx. It is understood by the patient/guardian that if the Sx's persist or worsen they need to return immediately for re-evaluation. Based on the history and exam findings, there is no indication for further emergent testing or inpatient evaluation. I discussed with the patient/guardian the need to see the primary care provider for further evaluation of the symptoms. Administered Medications: 14:54 Drug: Ondansetron Oral Disintegrating Tablet Oral Disintegrating Tablet 4 mg Route: PO; iw 15:20 Follow up: Response: No adverse reaction iw Disposition Summary: 02/27/23 13:52 Discharge Ordered Location: Home snw Condition: Stable snw Diagnosis - Abdominal pain, unspecified snw - Cyclical vomiting, not intractable snw Followup: snw - With: Emergency Department - When: As needed - Reason: Worsening of condition Followup: snw - With: Private Physician - When: 2 - 3 days - Reason: Recheck today's complaints, Continuance of care, Re-evaluation by your physician Discharge Instructions: - Discharge Summary Sheet snw - Abdominal Pain, Adult snw - Nausea and Vomiting, Adult snw - Electronic Cigarette Information snw - Cyclic Vomiting Syndrome, Adult snw Forms: - Medication Reconciliation Form snw - Thank You Letter snw - Antibiotic Education snw - Prescription Opioid Use snw - Patient Portal Instructions snw - Work release form iw Prescriptions: - dicyclomine 20 mg Oral Tablet - take 1 tablet by ORAL route 3 times per day As needed; 21 tablet; Refills: 0, snw Product Selection Permitted Signatures: Princess Barksdale FNP-C [employer] Anila Fan RN RN iw Isabela Butler RN RN cm10
--- NOTE | 2023-02-27 13:53 | ER ---
Nurse's Notes [facility] Name: Rsoas Clarke Age: 32 yrs Sex: Male : 1990 Arrival Date: 02/27/2023 Time: 13:08 Bed IW3 Private MD: Diagnosis: Abdominal pain, unspecified;Cyclical vomiting, not intractable Presentation: 02/27 13:43 Chief complaint: Patient states: upper abdominal pain X6 months. Pt states that he has cm10 pain upon wakening and is sharp. Pt reports coming to the ED today because the pain was worse and he was nauseous. Coronavirus screen: Vaccine status: Patient reports being unvaccinated. Client denies travel out of the [place] in the last 14 days. Ebola Screen: Patient denies travel to an Ebola-affected area in the 21 days before illness onset. No symptoms or risks identified at this time. Initial Sepsis Screen: Does the patient meet any 2 criteria? No. Patient's initial sepsis screen is negative. Does the patient have a suspected source of infection? No. Patient's initial sepsis screen is negative. Risk Assessment: Do you want to hurt yourself or someone else? Patient reports no desire to harm self or others. Onset of symptoms was February 27, 2023. 13:43 Method Of Arrival: Ambulatory cm10 13:43 Acuity: GINGER 3 cm10 Historical: - Allergies: 13:45 Abilify; cm10 - PMHx: 13:45 Bipolar disorder; ADD/ADHD; cm10 - Immunization history:: Adult Immunizations unknown. - Social history:: Smoking status: Reported history of juuling and/or vaping. Vital Signs: 13:43 BP 117 / 74; Pulse 64; Resp 18 S; Temp 98.1; Pulse Ox 98% on R/A; Weight 81.65 kg; cm10 Height 6 ft. 0 in. ; Pain 5/10; 13:43 Body Mass Index 24.41 (81.65 kg, 182.88 cm) cm10 13:43 Pain Scale: Adult cm10 ED Course: 13:13 Patient arrived in ED. im 13:25 Princess Barksdale FNP-C [facility] snw 13:25 Alondra Ford MD is Attending Physician. snw 13:45 Triage completed. cm10 13:45 Patient placed in waiting room. Arm band placed on. cm10 14:54 Anila Fan, RN is Primary Nurse. iw Administered Medications: 14:54 Drug: Ondansetron Oral Disintegrating Tablet Oral Disintegrating Tablet 4 mg Route: PO; iw 15:20 Follow up: Response: No adverse reaction iw Outcome: 13:52 Discharge ordered by . natalie 14:59 Patient left the ED. iw Signatures: Princess Barksdale, PROFESSIONAL [employer]ATER-C [employer]ESSION[employer] Anila Fan, RN RN iw Lakisha Gasca Clarissa, RN RN cm10 Corrections: (The following items were deleted from the chart) 13:45 13:43 Chief complaint: Patient states: upper abdominal pain X6 months. Pt states that cm10 he has pain upon wakening. Pt reports coming to the ED today because the pain was worse and he was nauseous. cm10
[2023-02-27] MEDS ORDERED: ONDANSETRON 4 MG (ODT) TAB ONE (15:02)
[2023-02-27 15:06] VITALS: BP 117/74; TEMP 98.1; O2SAT 98
== END 2023-02-27 14:59 | disposition home or self-care (01) ==
LOC: ER 13:08
DX: R10.9 Unspecified abdominal pain (principal); R11.15 Cyclical vomiting syndrome unrelated to migraine; Z88.8 Allergy status to other drugs, medicaments and biological substances
CPT/HCPCS: Q0162